=== PATIENT | female | born 1990 | race Two or more races ===

== ENCOUNTER 2018-10-31 12:57 | Emergency (ER) | payer OTHER ==
[~2018-10-31] VITALS: Ht 170.2 cm; Wt 81.6 kg
[2018-10-31] MEDS ORDERED: MUPIROCIN1 G1 TOP (16:08)
== END 2018-10-31 15:29 | disposition home or self-care (01) ==
LOC: ER 12:57
DX: S60.122A Contusion of left index finger with damage to nail, initial encounter (principal); S60.152A Contusion of left little finger with damage to nail, initial encounter; L08.89 Other specified local infections of the skin and subcutaneous tissue; W18.09XA Striking against other object with subsequent fall, initial encounter; Y93.89 Activity, other specified; Y92.832 Beach as the place of occurrence of the external cause; Y99.8 Other external cause status